=== PATIENT | female | born 1995 | race Caucasian/White ===

== ENCOUNTER 2018-07-10 06:35 | Outpatient (CLI) | payer MEDICAID ==
--- NOTE | 2018-07-10 08:10 | ULT ---
PELVIC ULTRASOUND MIRZA SCALE AND DOPPLER COLOR FLOW TRANSVAGINAL AND TRANSABDOMINAL PELVIC ULTRASOUND: INDICATION: Pain. History of cyst. FINDINGS: The endometrium is slightly greater than 1 cm, which is within normal limits for patient's age. Ther e is no focal uterine lesion identified. Doppler evaluation reveals flow to each ovary. There is a dominant cyst of the left ovary measuring greater than 4 cm. Cyst formation is also seen on the righ t which measures less than 3 cm. There is mild free pelvic fluid, nonspecific. IMPRESSION: Bilateral ovarian cyst formation, the dominant of which is on the left measuring greater than 4 cm. This demonstrates a generalized mild increased echogenicity and, therefore, may relate to hemorrhagic cyst. A 6-week followup pelvic ultrasound is warranted to confirm expected, physiologic resolution. POS: RE[facility]
== END 2018-07-10 06:36 | disposition home or self-care (01) ==
LOC: BICULT 06:35
PROVIDERS: ATTEND Nurse Practitioner Women's Health
DX: R10.2 Pelvic and perineal pain (principal); N83.202 Unspecified ovarian cyst, left side; N83.201 Unspecified ovarian cyst, right side
CPT/HCPCS: 76856

== ENCOUNTER 2018-10-12 06:33 | Outpatient (CLI) | payer MEDICAID ==
--- NOTE | 2018-10-12 08:04 | ULT ---
PELVIC SONOGRAM TRANSABDOMINAL AND TRANSVAGINAL IMAGING WITH DUPLEX EVALUATION: History: Pelvic pain. Comparison: 07-10-18 FINDINGS: Urinary bladder has a normal appearance. Uterus has a heterogeneous echotexture and is 8.0 cm. Endome trium is 0.4 cm. Right ovary is 2.1 cm. Normal appearance with good color and spectral doppler flow. At the left adnexa, a fairly homogeneous well circumscribed oval mass is 8.7 x 8.0 x 6.1 cm greatest diameters, larger than on the prior study. Some flow is present at the periphery but not within the a bnormality. It has enlarged from 4.8 cm on the previous exam. IMPRESSION: 1. Interval enlargement of the left adnexal complex mass. Hemorrhagic ovarian cyst versus endometriom a, primary considerations given the rapid enlargement. Neoplasm is not likely to grow this fast. 2. Otherwise stable sonographic appearance of the pelvis. POS: REZA
== END 2018-10-12 06:34 | disposition home or self-care (01) ==
LOC: BICULT 06:33
PROVIDERS: ATTEND Nurse Practitioner Women's Health
DX: R10.2 Pelvic and perineal pain (principal); R19.09 Other intra-abdominal and pelvic swelling, mass and lump
CPT/HCPCS: 76856

== ENCOUNTER 2020-11-25 01:57 | Emergency (ER) | payer OTHER, SELFPAY ==
[2020-11-25] MEDS ORDERED: Ondansetron PF 4 MG/2 ML Vial ONE (02:37)
== END 2020-11-25 03:15 | disposition left against medical advice (07) ==
LOC: ERS 01:57
DX: R11.2 Nausea with vomiting, unspecified (principal); R00.0 Tachycardia, unspecified
CPT/HCPCS: 99284; J2405